=== PATIENT | male | born 1960 | race Caucasian/White ===

== ENCOUNTER 2021-03-25 14:30 | Emergency (ER) | payer OTHER, SELFPAY ==
[2021-03-25 14:37] VITALS: BP 175/89; PULSE 78; RESP 18; TEMP 37.3; O2SAT 100
--- NOTE | 2021-03-25 15:26 | DI.CT.S_ITS ---
PROCEDURE: CT FACIAL BONES WO CON INDICATIONS: Right-sided jaw pain TECHNIQUE: Noncontrast 2.5 mm thick axial images acquired from the mandible through the frontal sinuses, with coronal and sagittal reformatting. For radiation dose reduction, the following was used: automated exposure control, adjustment of mA and/or kV according to patient size. COMPARISON: None. FINDINGS: Image quality: Excellent. Bones and teeth: In this patient with this given history, scrutiny is given to the right mandible. No findings of fracture or dislocation can be seen. No bony erosion is seen. No focal right mandible abnormality can be seen. No findings fracture or dislocation can be seen. Numerous dental caries can be seen. No aidee findings of periapical lucency can be seen to suggest dental abscess. Orbital sim are intact. Sinus sim show no fracture or deformity. Nasal bones and septum are intact. Zygomatic arches are intact. Pterygoid plates are intact. Visualized portions of the skull base and auditory canals are intact. Sinuses: Paranasal sinuses are aerated, without fluid levels, mucosal thickening, or mucoceles. Mastoid air cells are aerated. Soft tissues: On soft tissue windows, no findings of the perimandibular abscess can be seen. No edema, masses, or fluid collections. No enlarged lymph nodes. No soft tissue lacerations or debris. Vascular: Visualized vascular structures appear normal in the absence of contrast. Bony vascular foramina and canals are intact. IMPRESSION: No significant mandibular abnormality can be seen. Numerous dental caries are seen, yet without periapical lucency to suggest a dental abscess. Dictated by: Sonny Almaguer M.D. on 03/25/2021 at 15:00 Approved by: Sonny Almaguer M.D. on 03/25/2021 at 15:02
--- NOTE | 2021-03-25 16:21 | ED.DENTAL ---
HPI - Dental/Oral <Bautista Pennington PA-C - Last Filed: 03/25/21 19:55> General Chief complaint: Dental/Oral Stated complaint: pain on right side between ear and jaw Time Seen by Provider: 03/25/21 14:40 Source: patient Mode of arrival: Ambulatory History of Present Illness HPI Narrative: Patient is a 60-year-old male presenting to the emergency department today for evaluation of right-sided jaw pain. Patient states that he has experienced pain in his right jaw for the past 2 and half weeks, noting that pain is worse when he takes the 1st bite of food. He states that over the past 2 and half weeks his pain has progressively got worse and has lasted longer. He states that he was seen by his primary care provider and started on clindamycin for possible dental infection, however he states that his symptoms have not improved. He denies fever, chills, chest pain, cough, shortness of breath, nausea, vomiting, diarrhea, abdominal pain, dysuria, hematuria, sore throat, throat swelling, ear discharge, or any other concerning symptoms. No further concerns reports that this time. Related Data Previous Rx's Medication Instructions Recorded clindamycin HCl 150 mg capsule 450 mg PO TID 7 Days #63 cap 03/23/21 Review of Systems <Bautista Pennington PA-C - Last Filed: 03/25/21 19:55> Constitutional Constitutional: Denies chills, Denies fatigue, Denies fever(s), Denies frequent falls, Denies lethargy and Denies weakness Eyes Eyes: Denies loss of vision ENT Ears, Nose, Mouth, and Throat: Denies change in voice, Denies dizziness, Denies neck pain, Denies sore throat, Denies throat swelling and Reports other (Right-sided jaw pain) Cardiovascular Cardiovascular: Denies chest pain, Denies irregular heart rhythm, Denies lightheadedness, Denies palpitations, Denies dyspnea, Denies dyspnea on exertion and Denies orthopnea Respiratory Respiratory: Denies cough, Denies dyspnea, Denies dyspnea on exertion and Denies wheezing Gastrointestinal Gastrointestinal: Denies abdominal pain, Denies change in bowel habits, Denies diarrhea, Denies nausea and Denies vomiting Genitourinary Genitourinary: Denies hematuria, Denies flank pain, Denies urinary incontinence and Denies urinary urgency Musculoskeletal Musculoskeletal: Denies back pain, Denies muscle weakness, Denies neck pain, Denies numbness and Denies tingling Integumentary/Breasts Skin/Breast: Denies pruritus, Denies erythema, Denies rash and Denies wounds Neurologic Neurologic: Denies behavioral changes, Denies confusion, Denies dizziness, Denies frequent falls, Denies loss of vision, Denies numbness, Denies tingling and Denies weakness Psychiatric Psychiatric: Denies behavioral changes and Denies confusion Endocrine Endocrine: Denies fatigue and Denies palpitations Allergic/Immunologic Allergic/Immunologic: Denies throat swelling and Denies wheezing Exam <Bautista Pennington PA-C - Last Filed: 03/25/21 19:55> Narrative Exam Narrative: GENERAL: 60 year old patient appears stated age. Well-developed patient, in no acute distress. HEAD: Atraumatic. Normocephalic. EYES: Pupils equal round and reactive. Extraocular motions intact. No scleral icterus. No injection or drainage. ENT: Nose without bleeding, purulent drainage. Throat without erythema, tonsillar hypertrophy or exudate. Airway patent. External ears and canals clear bilaterally. TMs are non erythematous and not bulging bilaterally. Mild tenderness to palpation noted over the temporomandibular joint the right side without significant swelling, warmth, or erythema. NECK: Trachea midline. Non tender CARDIOVASCULAR: Regular rate and rhythm without murmurs, gallops, or rubs. RESPIRATORY: Clear to auscultation. Breath sounds equal bilaterally. No wheezes, rales, or rhonchi. GASTROINTESTINAL: Abdomen soft, non-tender, nondistended. EXTREMITIES: No edema or joint tenderness. BACK: Nontender without deformity or crepitance. No flank tenderness. NEURO: AOx3. SKIN: No rash or erythema of visible areas Initial Vital Signs Initial Vital Signs: Vital Signs Temperature 99.1 F 03/25/21 14:37 Pulse Rate 78 03/25/21 14:37 Respiratory Rate 18 03/25/21 14:37 Blood Pressure 175/89 H 03/25/21 14:37 Pulse Oximetry 100 03/25/21 14:37 <Kym Dean DO - Last Filed: 03/26/21 07:48> Initial Vital Signs Initial Vital Signs: Vital Signs Temperature 99.1 F 03/25/21 14:37 Pulse Rate 78 03/25/21 14:37 Respiratory Rate 18 03/25/21 14:37 Blood Pressure 175/89 H 03/25/21 14:37 Pulse Oximetry 100 03/25/21 14:37 Course <Bautista Pennington PA-C - Last Filed: 03/25/21 19:55> Course Course Narrative: CT of facial bones obtained. Orders Ordered: ED Orders 03/25/21 15:26 CT facial bones wo con Stat Vital Signs Vital signs: Vital Signs - 8 hr 03/25/21 14:37 03/25/21 16:33 Temperature 99.1 F Pulse Rate 78 84 Respiratory Rate 18 20 Blood Pressure 175/89 H 170/81 H Pulse Oximetry 100 98 <Kym Dean DO - Last Filed: 03/26/21 07:48> Orders Ordered: ED Orders 03/25/21 15:26 CT facial bones wo con Stat Vital Signs Vital signs: Vital Signs - 8 hr 03/25/21 14:37 03/25/21 16:33 Temperature 99.1 F Pulse Rate 78 84 Respiratory Rate 18 20 Blood Pressure 175/89 H 170/81 H Pulse Oximetry 100 98 MDM - Dental/Oral <Bautista Pennington PA-C - Last Filed: 03/25/21 19:55> Imaging Data CT scan - facial bones: Radiologist's Impression: PROCEDURE:? CT FACIAL BONES WO CON ? INDICATIONS:? Right-sided jaw pain ? TECHNIQUE:? Noncontrast 2.5 mm thick axial images acquired from the mandible through the frontal sinuses, with coronal and sagittal reformatting.? For radiation dose reduction, the following was used:? automated exposure control, adjustment of mA and/or kV according to patient size.? ? COMPARISON:? None. ? FINDINGS:? Image quality:? Excellent.? ? Bones and teeth:? In this patient with this given history, scrutiny is given to the right mandible.? No findings of fracture or dislocation can be seen.? No bony erosion is seen.? No focal right mandible abnormality can be seen.? No findings fracture or dislocation can be seen.? ? Numerous dental caries can be seen.? No aidee findings of periapical lucency can be seen to suggest dental abscess. ? Orbital sim are intact.? Sinus sim show no fracture or deformity.? Nasal bones and septum are intact.? Zygomatic arches are intact.? Pterygoid plates are intact.? Visualized portions of the skull base and auditory canals are intact.? ? Sinuses:? Paranasal sinuses are aerated, without fluid levels, mucosal thickening, or mucoceles.? Mastoid air cells are aerated.? ? Soft tissues:? On soft tissue windows, no findings of the perimandibular abscess can be seen.? No edema, masses, or fluid collections.? No enlarged lymph nodes.? No soft tissue lacerations or debris.? ? Vascular:? Visualized vascular structures appear normal in the absence of contrast.? Bony vascular foramina and canals are intact.? IMPRESSION:? No significant mandibular abnormality can be seen. ? Numerous dental caries are seen, yet without periapical lucency to suggest a dental abscess. ? ? Dictated by: Sonny Almaguer M.D. on 03/25/2021 at 15:00 ? ? Approved by: Sonny Almaguer M.D. on 03/25/2021 at 15:02 ? MDM Narrative Medical decision making narrative: To consider TMJ syndrome versus parotitis versus folliculitis versus peritonsillar abscess versus retropharyngeal abscess versus otitis externa versus otitis media versus malignant otitis externa versus serous otitis media verses facial fracture. Overall, physical examination, history, and imaging obtained in the emergency department today returned reassuring. Discussed CT results with patient informed him that no acute abnormality was identified that would require emergent intervention. I recommended that the patient attempted alleviating his symptoms with a sour candy to see he is experiencing any salivary gland obstruction. Additionally, I recommended the patient follow-up with his primary care provider for further evaluation and possible outpatient imaging. Patient expresses understanding and agrees to plan. At this time patient states he would like to be discharged home. His strict return precautions were discussed with the patient prior to discharge. Patient is stable and ready for discharge. Discharge Plan Departure Patient Disposition: Home Clinical Impression: Jaw pain Instructions: DI for Dental Pain Activity Restrictions/Additional Instructions: *You have been diagnosed with jaw pain *What to do: *Please continue to take your regular medications as directed. [ ] New medication prescriptions sent to your pharmacy: [ ] [ ] New medication written as a paper prescription [X] No new medications given Overall, CT scan and physical examination performed in the emergency department today were reassuring. No acute abnormality was identified today that would require emergent intervention. I recommend sucking on a sour candy in an attempt to dislodge any potential salivary gland obstructions. Additionally, I recommend completing her course of oral antibiotics. Follow-up with the primary care provider within the next 2-3 days for further evaluation. Do not hesitate to return to the emergency department if you experience worsening pain, fever, swelling of the throat, discharge from the ear, or any other concerning symptoms. *Please follow up with your primary care provider in 2-3 days, call for an appointment. Let them know you were seen in the Emergency Department and that we ask that you be seen in follow up. We will electronically transmit a record of today's note if your PCP is in our system *If you do not have a primary care provider please contact the [facility] Resource line at [phone]. They will ask some questions about your medical history and help get you set up with a doctor in the community. *Return to Emergency Department if you should have any new, worsening or concerning symptoms, such as [fever greater than 101 F, shaking chills, worsening pain, persistent vomiting or other bothersome symptoms] Prescriptions: No Action clindamycin HCl 150 mg capsule 450 mg PO TID 7 Days Qty: 63 0RF Referrals: Pablo Maurer MD [Primary Care Provider] - <Kym Dean DO - Last Filed: 03/26/21 07:48> Cosign ED Attending Mayaature Attestation: I was immediately available in the department for consultation. Documentation has been reviewed.
[2021-03-25 16:33] VITALS: BP 170/81; PULSE 84; RESP 20; O2SAT 98
== END 2021-03-25 15:33 | disposition home or self-care (01) ==
PROVIDERS: Emergency Provider Physician Assistant; PCP Family Medicine
DX: R68.84 Jaw pain (principal)
CPT/HCPCS: 70486; 99283